=== PATIENT | female | born 1985 | race Two or more races ===

== ENCOUNTER → 2019-03-18 | Outpatient (CLI) | payer OTHER | END | disposition home or self-care (01) | LOC: PRENATAL 12:42 | DX: Z36.89 Encounter for other specified antenatal screening (principal); O99.89 Other specified diseases and conditions complicating pregnancy, childbirth and the puerperium; O35.3XX1 Maternal care for (suspected) damage to fetus from viral disease in mother, fetus 1; Z3A.21 21 weeks gestation of pregnancy ==

== ENCOUNTER 2019-07-16 22:27 | Inpatient (IN) | payer OTHER ==
[~2019-07-16] VITALS: Ht 162.6 cm; Wt 74.4 kg
[2019-07-16] MEDS ORDERED: PRENATAL CAPLE1 EAC1 PO (23:05)
[2019-07-16] MEDS ORDERED: SYNTHROID137 MCG PO (23:05)
[2019-07-18] MEDS ORDERED: METOCLOPRAMIDE10 MG PO (09:55)
== END 2019-07-18 13:34 | disposition home or self-care (01) | DRG 807 ==
LOC: LDR 22:27 → SURG-SUITE 07-17 02:30
PROVIDERS: ADMIT Obstetrics & Gynecology; ATTEND Obstetrics & Gynecology
PROC: 10E0XZZ Delivery of Products of Conception, External Approach (ICD-10-PCS; principal; 2019-07-16)
PROC: 0KQM0ZZ Repair Perineum Muscle, Open Approach (ICD-10-PCS; 2019-07-16)
PROC: 4A1HXFZ Monitoring of Products of Conception, Cardiac Rhythm, External Approach (ICD-10-PCS; 2019-07-16)
DX: O70.1 Second degree perineal laceration during delivery (principal); Z37.0 Single live birth; Z3A.38 38 weeks gestation of pregnancy